=== PATIENT | male | born 1995 | race Caucasian/White ===

== ENCOUNTER 2019-08-14 00:22 | Emergency (ER) | payer SELFPAY ==
[2019-08-14 00:22] VITALS: BP 147/88; PULSE 61; RESP 18; TEMP 36.8; O2SAT 100; BMI 35.2
--- NOTE | 2019-08-14 00:53 | ED.VIS.DENTA ---
History of Present Illness Chief Complaint: Dental Informant: Patient Onset: Weeks - 3 Context: Gradual Onset Timing: Continuous Quality: ache Location: right lower molar Current Severity: Severe Maximum Severity: Severe Worsened by: eating Relieved by: - - ibuprofen and tylenol not helping Associated Symptoms: - - Right facial pain without swelling. No fevers. Past Medical History - Allergies and Home Meds Allergies/Adverse Reactions: Allergies No Known Allergies Allergy (Verified 08/14/19 00:27) Primary Care Physician: NOT,DEFINED [Primary Care Provider] - Past Medical History: None Lives: Spouse/ Significant Other Smoking Status: Current every day smoker Review of Systems General: Denies: Chills, Fever ENT: Reports: - - Dental pain. Right facial pain.. Denies: Rhinorrhea, Sore throat Respiratory: Denies: Dyspnea, Cough Gastrointestinal: Denies: Nausea, Vomiting Physical Exam Vital Signs/Narrative: Vital Signs Temp Pulse Resp BP Pulse Ox 08/14/19 00:22 98.3 F 61 18 147/88 H 100 Inital Vital Signs reviewed: Yes General: Well nourished, Well developed Head: Normocephalic, Atraumatic ENT: Moist mucous membranes, No rhinorrhea. Negative for: Sinus tenderness Mouth/Throat: Normal oral mucosa, No focal abscess, Normal posterior oropharynx, No sublingual edema, Focal dental decay - With carry on tooth #31 which is tender. Negative for: Dental trauma, Trismus Neck: Supple, No lymphadenopathy, Nontender Respiratory: No distress, CTA bilaterally, Chest nontender Skin: Normal color, No rash, No Trauma Neurological: Alert, Oriented x3, Cranial nerves II-XII grossly intact, Normal Strength, Normal Sensation, Normal Gait Psychological: Normal affect, Normal Mood Diagnostic/Tx/Re-eval - Medical Decision Making Dental Procedures: Cavet temporary sealant placed Not able to perform oarrs report. We will give him a prescription for tramadol as well as amoxicillin, and dental resource list given. ED Disposition - Plan for ED Patient: Disposition: Home or Assisted Living Diagnosis: Dental caries, Odontalgia Instructions: Dental Cavity, Dental Pain Prescriptions: Amoxicillin [Amoxil] 750 mg PO Q8H #90 tab.chew Prescription Printed traMADol [Ultram] 50 mg PO Q4H PRN PRN 3 Days #14 tab PRN Reason: Pain Prescription Printed Referrals: Dentist,Your [STAFF PHYSICIAN] - As soon as possible (see resource list if you do not already have one)
[2019-08-14] MEDS: traMADol 50 MG Tablet PO (01:13)
[2019-08-14] MEDS: AMOXICILLIN 500 MG CAPSULE PO (01:13)
== END 2019-08-14 01:16 | disposition home or self-care (01) ==
LOC: ED 01:13
PROVIDERS: Emergency Provider Emergency Medicine; Family Provider Family Medicine; PCP Family Medicine
DX: K02.9 Dental caries, unspecified (principal); F17.200 Nicotine dependence, unspecified, uncomplicated
CPT/HCPCS: 99283

== ENCOUNTER 2023-11-25 20:43 | Emergency (ER) | payer SELFPAY ==
[2023-11-25 20:44] VITALS: BP 117/93; PULSE 66; RESP 18; TEMP 36.5; O2SAT 100; BMI 33.7
--- OUTSIDE RECORDS SUMMARY | 2023-11-25 21:18 | XMS RPT_ITS | CCD ---
Author Name Unknown Address [address] [place] [address] Organization [facility] Care Team Providers Care Outdoor Adventure Guides Name Role Phone Surendra Fitzgerald MD Primary Care Provider SURENDRA FITZGERALD Primary Care Unavailable SHREYAS SANCHEZ Referring Unavailable SURENDRA FITZGERALD Referring Unavailable DAMARI SCANLON Attending Unavailable SURENDRA FITZGERALD Primary Care Unavailable SURENDRA FITZGERALD Primary Care Unavailable SHREYAS SANCHEZ Attending Unavailable SURENDRA FITZGERALD Primary Care Unavailable SURENDRA FITZGERALD Attending Unavailable SURENDRA FITZGERALD Referring Unavailable DAMARI SCANLON Attending Unavailable SURENDRA FITZGERALD Primary Care Unavailable SURENDRA FITZGERALD Referring Unavailable SURENDRA FITZGERALD Primary Care Unavailable DAMARI SCANLON Attending Unavailable Medications Completed/Discontinued Medications Medication Drug Class(es) Dates Sig (Normalized) Sig (Original) Acetaminophen (5 sources) acetaminophen (T YLENOL 8 HOUR ORAL) Take by mouth. 0 Active Problems Active Problems Problem Classification Problem Date Documented Da te Episodic/Chronic Other acquired deformities (1 source) Deformity of tibia; Translations: [Unspecified acquired deformity of left lower leg] Episodic Other acquired deformities (1 source) Leg length inequality; Translations: [Unequal limb length (acquired), unspecified site] Episodic Other nervous system disorders (1 source) Abnormal sensation; Translations: [Other disturbances of skin sensation] Episodic Other skin disorders (1 source) Trichilemmal cyst; Translations: [Pilar cyst] Episodic Past or Other Problems Problem Classification Problem Date Documented Da te Episodic/Chronic Other acquired deformities (1 source) Unspecified acquired deformity of left lower leg; Translations: [Tibial deformity, acquired, left] Onset: 01-14-2022 Episodic Other acquired deformities (1 source) Unequal limb length (acquired), unspecified site; Translations: [Leg length discrepancy] Onset: 01-14-2022 Episodic Other and unspecified benign neoplasm (1 source) Melanocytic nevi, unspecified; Translations: [Skin mole] Onset: 12-09-2021 Episodic Other skin disorders (1 source) Sebaceous cyst; Translations: [Sebaceous cyst] Onset: 12-09-2021 Episodic Skin and subcutaneous tissue infections (10 sources) Abscess; Translations: [Cellulitis, unspecified] Onset: 12-18-2015 12-18-2015 Episodic Results Test Name Value Interpretation Reference Range Facil ity Encounters Encounter Date Encounter Type Care Provider Facility Start: 01-14-2022 End: 01-14-2022 ambulatory SURENDRA [place] [facility] Facility:[facility] Start: 01-14-2022 End: 01-14-2022 Subsequent hospital visit by physician Timothy General Xray A21 Radiology Procedures Date Procedure Procedure Detail Performing Clinician Start: 01-14-2022 Bone length studies Samir jb Sanchez MD Work Phone: Plan of Treatment Date Care Activity Detail Author Start: 06-12-2022 Influenza vaccination C [facility] Start: 03-26-2022 Adult depression scr eening assessment DEPRESSION SCREENING [facility] Payers Date Payer Category Payer Medicaid UHC MEDICAID [employer]ITY [employer] MEDICAID [id number] 2019-Present [phone] [address] [place] [address] Medicaid [id number] 2019 Medicaid UHC MEDICAID UHC COMMUNITY PLAN MEDICAID OF [place] [id number] 2019-Present [phone] [address] [place] [address] Medicaid [id number] 2019 Medicaid [id number] Social History Date Type Detail Facility Start: 12-18-2015 End: 08-09-2020 Tobacco smoking status NHIS Ex-smoker [facility] Start: 12-18-2015 End: 08-09-2020 Tobacco use and exposure Smokeless tobacco non-user [facility] Start: 01-03-2022 Alcohol intake Current drinke r of alcohol (finding) [facility] Start: 1995 Sex Assigned At Not on file C [facility] Start: 12-24-2021 End: 01-14-2022 Exposure to SARS-CoV-2 (event) Not sure [facility] History of tobacco use Current smoker [facility] Clinical Notes 12-06-2021 to 01-14-2022 RT Glenroy(R) - 01/14/2022 2:20 PM EDTTelephone Encounter - Candy Mayorga LPN - 01/13/2022 1:32 PM EDTTelephone Encounter - Lito León APRN.WIND PROJECTS SUPERVISOR - 01/13/2022 1:22 PM EDT Note Date & Type Note Facility 01-14-2022 Note HNO ID: [id number] Author: Shreyas Sanchez MD Service: ? 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 He has been contemplating doing further surgery for this. He is getting back pain periodically and some ankle pain. Here today for further discussion. On examination today he has a pretty significant left side shorter than the right leg length inequality. Ankle deformity identified with significant internal rotation of the tibia. Multiple previous scars identified on the tibia from previous external fixators. He is ambulating quite good and is in no acute distress today. Radiographs reviewed which show pretty significant varus of the distal tibia and the joint is tilted at about 48 degrees. Changes about the knee also identified. Leg length inequality of approximately 46 mm. Plan: We have a long discussion today regarding overall findings. We have again discussed the possibility of doing a distal tibia and fibular osteotomy with spatial frame correcting tibial rotation distal tibial varus position and leg length inequality. We have discussed amount of time he would likely be in a frame. We have discussed concerns and complications associated with the frame. He will consider this perhaps for the fall. Shreyas Sanchez MD [facility] 01-14-2022 Note HNO ID: [id number] Author: RT Glenroy(R) Service: ? Author Type: Technologist Type: Progress Notes Filed: 01/14/2022 2:57 PM Note Text: Radiology Service Progress Note PATIENT NAME: Trey Alejo DATE OF SERVICE: January 14, 2022 TIME: 2:56 PM PATIENT IDENTITY VERIFICATION COMPLETED USING TWO (2) IDENTIFIERS: Name and Date of confirmed by patient verbally. FALL SCREENING: Has the patient had 2 falls in the last year or 1 fall with injury or currently using an Ambulatory Assistive Device (Walker, Cane, Wheelchair, Crutches, etc.)? No PATIENT GENDER DATA: Male PATIENT RELEVANT IMPLANT DATA REVIEWED: Not Applicable RADIOLOGY DEPARTMENT: General X-ray: Exam(s) Completed: Lower Extremity X-Ray(s): FLEA (Full Length Lower Extremity) PERIPHERAL IV DATA: Not applicable SIGNED BY: RT Glenroy(R) January 14, 2022 2:56 PM [facility] 01-14-2022 History of Presen t illness Narrative Radiology Service Progress Note PATIENT NAME: Trey Alejo DATE OF SERVICE: January 14, 2022 TIME: 2:56 PM PATIENT IDENTITY VERIFICATION COMPLETED USING TWO (2) IDENTIFIERS: Name and Date of confirmed by patient verbally. FALL SCREENING: Has the patient had 2 falls in the last year or 1 fall with injury or currently using an Ambulatory Assistive Device (Walker, Cane, Wheelchair, Crutches, etc.)? No PATIENT GENDER DATA: Male PATIENT RELEVANT IMPLANT DATA REVIEWED: Not Applicable RADIOLOGY DEPARTMENT: General X-ray: Exam(s) Completed: Lower Extremity X-Ray(s): FLEA (Full Length Lower Extremity) PERIPHERAL IV DATA: Not applicable SIGNED BY: RT Glenroy(R) January 14, 2022 2:56 PM documented in this encounter [facility] 01-13-2022 Miscellaneous Notes Formattin g of this note might be different from the original. Patient notified of results, verbalizes understanding of instructions. Candy Mayorga LPN If the patient needed an antibiotic now, the dentist would have given him one. No need for anything further. Lito León APRN.SINDHU Pt called in and reports he just had his teeth cleaned and the dentist reported that they are infected. He states he broke 4 of his teeth, and he is going to be getting them pulled on 01/30/22. He reports that the dentist gave him Amoxicillin and Decadron, but told him not to take them until right before the surgery. Pt says he is not really have much pain from teeth, his jaw is a little sore underneath where the teeth are. He reports he has been spitting out white yellow salvia from his mouth. Pt states it has decreased his appetite. He is still eating and drinking, but he tends not to chew food on the side of his mouth with the broke teeth. Pt is wanting to know if provider feels that he needs any antibiotic before his surgery, and asking if he would send it to [facility]. Pt also asking if he would make antibiotic liquid. Please call and advise. documented in this encounter [facility] 01-06-2022 Miscellaneous Notes Told patient results of pathology - compound melanocytic nevus Continue observation of area, for any development of future dark pigmentation. Patient acknowledges above. documented in this encounter [facility] 01-06-2022 Note HNO ID: [id number] Author: Damari Scanlon MD Service: ? Author Type: Physician Type: Procedures Filed: 01/06/2022 7:54 AM Note Text: Description of procedure: After informed consent was obtained, patient was brought to the procedure room. Appropriate time out protocol was followed. Patient was placed in the supine position. The site of the lesion was then cleansed with a sterile surgical skin preparation. Appropriate sterile surgical drapes were placed. The skin and subcutaneous tissues at the site were then infiltrated with local anesthetic. A skin incision was made at the site over the lesion with a 15 blade scalpel. The incision was carried down to the subcutaneous tissues. Dissection was done to separate the skin lesion from the surrounding subcutaneous tissues. The lesion was excised sharply down to the subcutaneous tissues. The lesion was 1.4 cm in size. The tissue was then removed. Patient did not want it to be forwarded to pathology for analysis. Hemostasis was controlled by pressure. The skin edges were then reapproximated with interrupted 3-0 chromic suture in a simple fashion. Patient tolerated procedure well. Complications - none EBL - minimal [facility] 01-06-2022 Note HNO ID: [id number] Author: Damari Sacnlon MD Service: ? Author Type: Physician Type: Progress Notes Filed: 01/06/2022 7:54 AM Note Text: Trey presents for excision of scalp cyst. The location of this lesion was of the forehead just within the hairbearing area. Patient tolerated procedure well. Also, the pathology from excision of left shoulder lesion is still pending - this was done on 12/18/2021. The office staff will call the pathology department for status of the above. Patient to follow up in a week for excision of another scalp cyst lesion. [facility] 01-06-2022 Procedure note Procedure(s): REM LESION NEC,HND,SCAL,FEET,GENITALIA 1.1-2.0CM Pre-Procedure Diagnose(s): Scalp cyst; Dysesthesia Post-Procedure Diagnose(s): Scalp cyst; Dysesthesia Description of procedure: After informed consent was obtained, patient was brought to the procedure room. Appropriate time out protocol was followed. Patient was placed in the supine position. The site of the lesion was then cleansed with a sterile surgical skin preparation. Appropriate sterile surgical drapes were placed. The skin and subcutaneous tissues at the site were then infiltrated with local anesthetic. A skin incision was made at the site over the lesion with a 15 blade scalpel. The incision was carried down to the subcutaneous tissues. Dissection was done to separate the skin lesion from the surrounding subcutaneous tissues. The lesion was excised sharply down to the subcutaneous tissues. The lesion was 1.4 cm in size. The tissue was then removed. Patient did not want it to be forwarded to pathology for analysis. Hemostasis was controlled by pressure. The skin edges were then reapproximated with interrupted 3-0 chromic suture in a simple fashion. Patient tolerated procedure well. Complications - none EBL - minimal documented in this encounter [facility] 01-06-2022 History of Presen t illness Narrative Trey presents for excision of scalp cyst. The location of this lesion was of the forehead just within the hairbearing area. Patient tolerated procedure well. Also, the pathology from excision of left shoulder lesion is still pending - this was done on 12/18/2021. The office staff will call the pathology department for status of the above. Patient to follow up in a week for excision of another scalp cyst lesion. UNIVERSAL PROTOCOL / SAFETY CHECKLIST Procedure to be Performed: Excision of scalp skin lesions Sign In: A Moment of CARE was completed. Personnel directly involved with the procedure wore the appropriate PPE (Personal Protective Equipment). Patient/Surrogate Stated/Verified: PATIENT VERIFIED(optional for EMERGENT procedures): Patient name, Date of , Relevant allergies and The intended procedure Time Out Communication: Intended patient and procedure match the source documents. Consent documented and matches the intended procedure. No relevant labs, photos, and/or imaging studies were applicable for review. Medications required for procedure verified. No fire risk assessment and interventions applicable. No implant(s) inserted. Sign Out: SIGN OUT (optional for EMERGENT procedures): No specimen collected. No instruments, equipment or retained foreign bodies applicable. Post-procedure follow-up management communicated and Plan of Care Visit completed when applicable. Georgie Kaye LPN documented in this encounter [facility] 01-03-2022 Note HNO ID: [id number] Author: Georgie Kaye LPN Service: ? Author Type: LICENSED NURSE Type: Progress Notes Filed: 01/06/2022 7:54 AM Note Text: UNIVERSAL PROTOCOL / SAFETY CHECKLIST Procedure to be Performed: Excision of scalp skin lesions Sign In: A Moment of CARE was completed. Personnel directly involved with the procedure wore the appropriate PPE (Personal Protective Equipment). Patient/Surrogate Stated/Verified: PATIENT VERIFIED(optional for EMERGENT procedures): Patient name, Date of , Relevant allergies and The intended procedure Time Out Communication: Intended patient and procedure match the source documents. Consent documented and matches the intended procedure. No relevant labs, photos, and/or imaging studies were applicable for review. Medications required for procedure verified. No fire risk assessment and interventions applicable. No implant(s) inserted. Sign Out: SIGN OUT (optional for EMERGENT procedures): No specimen collected. No instruments, equipment or retained foreign bodies applicable. Post-procedure follow-up management communicated and Plan of Care Visit completed when applicable. Geogrie Kaye LPN [facility] 01-03-2022 Miscellaneous Notes Spoke to Dre at [facility], states to call back on Thursday in the morning, d/t [facility] client service dept having no one available. Left message for patient to call office. Will be following up with lab on Thursday01/06/22 documented in this encounter [facility] 01-03-2022 Instructions Georgie Kaye LPN - 01/03/2022 2:31 PM EDT The following instructions are important for you related to your office visit today with the [facility]. Instructions After I & D If the dressing becomes soaked or had significant drainage, the dressing should be changed. If there is minor bleeding from this skin edge, you should hold pressure on the incision. If there is continued bleeding, you should contact our office immediately. Wash the wound with gentle soap and water. You may shower. The wound should not be immersed in a pool, bathtub, or even hot tub. If the wound shows signs of redness, inflammation, or purulent drainage, you should contact our office immediately. If you note any additional difficulties, questions, or concerns, you should contact our office immediately @ [phone] and ask to be transferred to the General Surgery department. documented in this encounter [facility] 12-18-2021 Note HNO ID: [id number] Author: Damari Scanlon MD Service: ? Author Type: Physician Type: Procedures Filed: 12/18/2021 4:26 PM Note Text: Description of procedure: After informed consent was obtained, patient was brought to the procedure room. Appropriate time out protocol was followed. Patient was placed in the supine position. The site of the lesion was then cleansed with a sterile surgical skin preparation. Appropriate sterile surgical drapes were placed. The skin and subcutaneous tissues at the site were then infiltrated with local anesthetic. A skin incision was made at the site in an elliptical fashion to entirely incorporate the lesion with a 15 blade scalpel. The incision was carried down to the subcutaneous tissues. The lesion was excised sharply down to the subcutaneous tissues. It was then sharply excised. The lesion was 1.5 cm in size. The tissue was then removed and placed in formalin to be forwarded to pathology for analysis. Hemostasis was controlled by pressure. The skin edges were then reapproximated with interrupted 2-0 nylon suture in a simple fashion. Sterile dressing was applied. Patient tolerated procedure well. Complications: none EBL - minimal [facility] 12-18-2021 Note HNO ID: [id number] Author: Damari Scanlon MD Service: ? 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 He will follow up in two weeks when he returns for excision of pilar cysts of scalp. Wound dressing instructions given. [facility] 12-18-2021 Note HNO ID: [id number] Author: Georgie Kaye LPN Service: ? Author Type: LICENSED NURSE Type: Progress Notes Filed: 12/18/2021 4:26 PM Note Text: UNIVERSAL PROTOCOL / SAFETY CHECKLIST Procedure to be Performed: Excision of left shoulder skin lesion. Sign In: A Moment of CARE was completed. Personnel directly involved with the procedure wore the appropriate PPE (Personal Protective Equipment). Patient/Surrogate Stated/Verified: PATIENT VERIFIED(optional for EMERGENT procedures): Patient name, Date of , Relevant allergies and The intended procedure Time Out Communication: Intended patient and procedure match the source documents. Consent documented and matches the intended procedure. Sign Out: Georgie KayeNATHALIE [facility] 12-09-2021 Note HNO ID: [id number] Author: Damari Scanlon MD Service: ? Author Type: Physician Type: Progress Notes Filed: 12/10/2021 7:09 AM Note Text: Trey Henriquez Melo 1995 REFERRING PHYSICIAN: Surendra Fitzgerald MD CHIEF COMPLAINT: Consult (sebaceous cyst/mole) HPI: The patient is a 26 year old male presents with complaint of pilar cysts of the scalp. Because they protrude, they are easily abraded with hair grooming and he requests removal. He also notes a darkly pigmented nevus of his left shoulder area that he is concerned about. Has noted these lesions for years . He has had pilar cysts of the scalp removed previously. PAST MEDICAL HISTORY Diagnosis Date - Meningitis spinal 1997 PAST SURGICAL HISTORY Procedure Laterality Date - PAST SURGICAL HISTORY OF Left 2004, 2006 limb lengthening Current Outpatient Medications Medication Sig - DM/p-ephed/acetaminoph/doxylam (NYQUIL D ORAL) Take by mouth. - acetaminophen (TYLENOL 8 HOUR ORAL) Take by mouth. (Patient not taking: Reported on 12/09/2021 ) ALLERGIES: Patient has no known allergies. PERSONAL HISTORY: Social History Tobacco Use - Smoking status: Former Smoker - Smokeless tobacco: Never Used Vaping Use - Vaping Use: Never used Substance Use Topics - Alcohol use: Yes - Drug use: Yes Types: Marijuana FAMILY HISTORY Problem Relation Age of Onset - Hypertension Mother - Cancer Father - Cancer Maternal Grandmother unsure of specifics The review of systems data was entered by the nurse and reviewed by wy Nursing Notes: Radha Enrique RN 12/09/2021 1:31 PM Signed REVIEW OF SYSTEMS: General: The patient denies fatigue, denies weight loss, denies weight gain, denies feeling hot, and denies feelings of cold. Eyes: The patient denies glaucoma, denies eye injury/surgery, does not wear glasses or contacts. Ear/Nose/Throat: The patient denies allergies, denies hayfever, denies ear infections, and denies bloody noses. Cardiovascular: The patient denies chest pain, denies heart disease, denies high blood pressure,denies cardiac stent, denies prior heart attack, denies irregular heart beat, denies high cholesterol, denies poor circulation, denies heart failure, other cardiac issues, denies claudication, denies cold feet, denies peripheral arterial stent. Respiratory: The patient denies tuberculosis, denies pneumonia, denies frequent cough, denies pulmonary embolism, NOTES shortness of breath, and denies coughing up blood. Gastrointestinal: The patient denies difficulty swallowing, denies acid reflux, denies ulcers, denies vomiting, denies jaundice/hepatitis, denies gallbladder problems, denies black or tarry stools, denies hemorrhoids, denies bleeding from rectum, denies diverticulitis, denies constipation, denies diarrhea, denies loss of stool control, and denies hernias. Kidney/Bladder: The patient denies kidney stones, denies urine infections, and denies bloody urine. Skin: The patient denies a history of skin cancer, denies bleeding/changing moles, and denies a history of skin rash. Neurologic: The patient denies a history of epilepsy/convulsions, denies headaches, denies head/spinal injuries, and denies stroke/TIA. Psychiatric: The patient denies psychiatric medications, denies depression, and denies voices, denies substance abuse. Endocrine: The patient denies thyroid disorders, denies diabetes, and denies hormonal problems. Hematologic: The patient denies a history of bruising, denies bleeding, and denies anemia, denies blood clots. Infections: The patient denies a history of measles and mumps, denies rheumatic fever, and denies sexually transmitted diseases. Musculoskeletal: The patient NOTES back pain/injury, denies back problems, denies sciatica, denies knee/foot trouble, denies arthritis, or denies gout. When was patient's last Mammogram screening? N/A Last Colonoscopy: none Radha Enrique RN PHYSICAL EXAMINATION: General: The patient is 26 year old male, well nourished, well hydrated in no acute distress. The patient is oriented to time, place, and person. VITALS: Blood pressure 100/64, pulse 73, temperature 37.4 ?C (99.3 ?F), height 160 cm (5' 3 ), weight 79.6 kg (175 lb 6.4 oz), SpO2 95 %. Body mass index is 31.07 kg/m?. Head: Normal cephalic, atraumatic, pilar cysts of scalp noted x 4 in various locations, all about 1 cm Eyes: pupils are equally round, sclera are clear/anicteric Neck is supple with no tracheal deviation Respiratory: Normal respiratory excursion and pattern. Abdominal exam: benign Extremities: no clubbing, cyanosis or edema. Skin: pilar cysts as above, darkly pigmented nevus of left shoulder about 1.5 cm Neuro: non focal Psych: normal mood Assessment IMPRESSION: pigmented nevus of left shoulder area of uncertain behavior, pilar cysts causing irritation PLAN: I have discussed the above with the patient. I have offered exc (more content not included)... [facility] 12-06-2021 Note HNO ID: [id number] Author: Surendra Fitzgerald MD Service: ? Author Type: Physician Type: Progress Notes Filed: 12/06/2021 3:13 PM Note Text: Chief Complaint No chief complaint on file. HPI Trey Alejo is a 26 year old male who presents here today for a Wellness Exam. Pt here today for a Wellness exam. Pt last seen in office on 08/09/2020. 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 Has Arabic bulldog. Denies tobacco use, but does smoke marijuana occ- noted in the past it helps with his pain. GI/Urinary - Denies any stomach, bowel or urinary issues. Cardiac - Denies any chest pain, sob or dizziness. Pain - Chronic back and left leg and ankle pain due to leg length discrepancy. Pt has had previous ankle surgeries with screws placed. At previous OV pt requested that he would like to f/u with a Specialist due to his chronic pain. Pt did f/u with Ortho Dr Shreyas Sanchez on 08/21/2020. Surgical correction was discussed; trey did not follow up after that but would like to now. Two karmen cysts on scalp. Large moel on left shoulder that has been rpesent a long time. Past medical history, appointments, medications, allergies reviewed. Previous Medical History PAST MEDICAL HISTORY Diagnosis Date - Meningitis spinal Previous Surgical History PAST SURGICAL HISTORY Procedure Laterality Date - PAST SURGICAL HISTORY OF Left 2004, 2006 limb lengthening Family History FAMILY HISTORY Problem Relation Age of Onset - Cancer Maternal Grandmother unsure of specifics Patient Allergies ALLERGIES No Known Allergies Current Medications Current Outpatient Medications on File Prior to Visit Medication Sig - trimethoprim-polymyxin (POLYTRIM) 10,000 unit- 1 mg/mL ophthalmic solution Use 2 Drops in both eyes four times daily. - cephALEXin (KEFLEX) 250 mg/5 mL suspension Take 10 mL by mouth four times daily. (Patient not taking: Reported on 08/21/2020 ) - sulfamethoxazole-trimethoprim (BACTRIM,SEPTRA) 200-40 mg/5 mL suspension Take 10 mL by mouth twice daily. (Patient not taking: Reported on 08/21/2020 ) - zolpidem (AMBIEN) 10 mg tab Take 1 tablet by mouth at bedtime as needed. (Patient not taking: Reported on 08/21/2020) No current facility-administered medications on file prior to visit. Social History Social History Tobacco Use - Smoking status: Former Smoker - Smokeless tobacco: Never Used Vaping Use - Vaping Use: Never used Substance Use Topics - Alcohol use: No - Drug use: Yes Types: Marijuana EXAM: There were no vitals taken for this visit. General Appearance: Well appearing, alert, in no acute distress, well-hydrated, well nourished.. Skin: two small karmen cyst on right side scalp, not inflamed or draining. 1+ cm rough brown mole on left shooulder. Lungs: Lungs clear to auscultation. No wheezing, rhonchi, rales.. Heart: RRR without murmur, gallop, or rubs. No ectopy. Abdomen: Normal abdominal exam, Abdomen soft, non-tender. Bowel sounds normal. No masses, organomegaly. Extremities: left lower leg internal torsion. Health Maintenance List COVID-19 VACCINE(1) Never done MENINGOCOCCAL B: Consider based on risk(1 of 2 - Risk Bexsero 2-dose series) Never done HPV VACCINE(1 - Male 2-dose series) Never done DEPRESSION SCREENING Never done HEPATITIS C SCREENING Never done HIV SCREENING Never done DTAP,TDAP,TD(1 - Tdap) Never done INFLUENZA(1) due on 06/12/2021 MENINGOCOCCAL CONJUGATE Aged Out Data reviewed None ASSESSMENT/PLAN: 1. Wellness examination - ICD9: V70.0, ICD10: Z00.00 (primary diagnosis) - Counseled on healthy diet and regular exercise 2. Acquired leg length discrepancy - ICD9: 736.81, ICD10: M21.70 Given the contact number listed in the note of his visit with Dr Sanchez; pt will call and schedule follow up 3. Sebaceous cyst - ICD9: 706.2, ICD10: L72.3 - CONSULT TO GENERAL SURGERY 4. Skin mole - ICD9: 216.9, ICD10: D22.9 - CONSULT TO GENERAL SURGERY Follow up prn Surendra Fitzgerald MD [facility] Diagnosis Tibial deformity, acquired, left Leg length discrepancy Unequal leg length (acquired) documented [facility] this [facility]ative[facility] Diagnostic Procedure Only (Routine) - Closed Specialty Diagnoses / Procedures Referred By Contac t Referred To Contact XR IMAGING Diagnoses Tibial deformity, acquired, left Leg length discrepancy Procedures XR LEG FRONTAL HIP TO ANKLE MECHANICAL AXIS BONE LENGTH STUDIES Shreyas Sanchez MD [address] [place] [address] Xr Imaging Referral ID Status Reason Start Date Expiration Date V isits Requested Visits Authorized [id number] Closed Auto-Generate d Referral 12/12/2021 01/10/2023 1 1 [facility] Summary Purpose Family History No Family History Records Found Advance Directives No Advanced Directives Records Found Additional Source Comments Source Comments (unrecognize d section and content) In the event this informatio n is protected by the Federal Confidentiality of Alcohol and Drug Abuse Patient Records regulations: The Federal rules restrict any use of the information to criminally investigate or prosecute any alcohol or drug abuse patient.[facility] the event this information is protected by the Federal Confidentiality of Alcohol and Drug Abuse Patient Records regulations: The Federal rules restrict any use of the information to criminally investigate or prosecute any alcohol or drug abuse patient.[facility] the event this information is protected by the Federal Confidentiality of Alcohol and Drug Abuse Patient Records regulations: The Federal rules restrict any use of the information to criminally investigate or prosecute any alcohol or drug abuse patient.[facility] the event this information is protected by the Federal Confidentiality of Alcohol and Drug Abuse Patient Records regulations: The Federal rules restrict any use of the information to criminally investigate or prosecute any alcohol or drug abuse patient.[facility] the event this information is protected by the Federal Confidentiality of Alcohol and Drug Abuse Patient Records regulations: The Federal rules restrict any use of the information to criminally investigate or prosecute any alcohol or drug abuse patient.[facility] Reason for Visit (unrecogniz ed section and content) Reason Comments Procedure Excision of scalp sk in lesions Wound Check suture removal left shoulder Reason Comments Results Reason Comments Radio Gen A21 Specialty Diagnoses / Procedures Referred By Contac t Referred To Contact XR IMAGING Diagnoses Tibial deformity, acquired, left Leg length discrepancy Procedures XR LEG FRONTAL HIP TO ANKLE MECHANICAL AXIS BONE LENGTH STUDIES Shreyas Sanchez MD [address] [place] [address] Xr Imaging Referral ID Status Reason Start Date Expiration Date V isits Requested Visits Authorized [id number] Closed Auto-Generate d Referral 12/12/2021 01/10/2023 1 1 Reason Comments Patient Update Broken teeth Care Teams (unrecognized sec tion and content) [employer] Relationship Specialty Start Date End Date Surendra Fitzgerald MD [address] [place], [place] [phone] PCP - General Family Practice 02/13/16 [employer] Relationship Specialty Start Date End Date Surendra Fitzgerald MD [address], [place] [phone] PCP - General Family Practice 02/13/16 [employer] Relationship Specialty Start Date End Date Surendra Fitzgerald MD [address], [place] [phone] PCP - General Family Medicine 02/13/16 (unrecognized sect ion and content) No Status Records Found INFORMATION SOURCE (unrecogn ized section and content) FOR RECORDS PERTAINING TO PATIENTS WHO ARE OR HAVE BEEN ENROLLED IN A CHEMICAL DEPENDENCY/SUBSTANCEABUSE PROGRAM, SOME INFORMATION MAY BE OMITTED. This clinical summary was aggregated from multiple sources. Caution should be exercised in using it in the provision of clinical care. This summary normalizes information from multiple sources, and as a consequence, information in this document may materially change the coding, format and clinical context of patient data. In addition, data may be omitted in some cases. CLINICAL DECISIONS SHOULD BE BASED ON THE PRIMARY CLINICAL RECORDS. [facility] provides no warranty or guarantee of the accuracy or completeness of information in this document.
[2023-11-25] MEDS: HYDROCODONE/APAP 7.5-325/15ML 15 ML UDC 10 ML PO (22:29)
[2023-11-25] MEDS: Diphth,Pertuss(Acell),Tet Vac 0.5 ML Vial IM (22:29)
--- NOTE | 2023-11-25 22:43 | EDS_ITS ---
HPI History of Present Illness Chief Complaint: Bite Narrative Narrative: 28-year-old male presents today and a dog bite to the fourth digit of his right hand. He states he was bit by his Cam[place] bulldog. He states the dog was put into the cage and that is why he bit him. The dog shots are up-to-date. No concern for rabies. Bleeding is well-controlled. Patient states it is very painful. Does not think he went to bone. Patient has full range of motion of the right finger. No numbness or tingling. Last tetanus unknown. [id number]. ROS ROS ED Constitutional Constitutional ED: Denies chills, fever(s) or sweats Eyes Eyes: Denies blurry vision or change in vision ENT ENT ED: Denies ear pain or sore throat Cardiovascular Cardiovascular: Denies chest pain, palpitations or racing heartbeat Respiratory/Chest Respiratory/Chest: Denies cough, dyspnea or sputum Gastrointestinal Gastrointestinal: Denies abdominal pain, constipation, diarrhea, nausea or vomiting Genitourinary Genitourinary ED: Denies dysuria, hematuria or urinary frequency Musculoskeletal Musculoskeletal: Denies arthralgias, myalgias or neck pain Integumentary Reports other Details: Dog bite right fourth digit ; Denies abscess, Abrasions or rash Neurologic Neurologic: Denies headache(s), paresthesias or weakness Psychiatric Psychiatric: Denies anxiety, depression, suicidal ideation or suicidal thoughts Endocrine Endocrinology: Denies polydipsia or polyuria PFSH PFSH Medical History no medical history Home Medications amoxicillin 400 mg-potassium clavulanate 57 mg/5 mL oral suspension 10.9375 ml PO BID 10 days #218.75 mL 11/25/23 [Rx Last Taken Unknown] hydrocodone 7.5 mg-acetaminophen 325 mg/15 mL oral solution 10 ml PO Q6H PRN pain 3 days #120 mL 11/25/23 [Rx Last Taken Unknown] Allergy/AdvReac Type Severity Reaction Status Date / Time No Known Allergies Allergy Verified 11/25/23 20:44 Social History Smoking Status: Current every day smoker tobacco type: cigarettes EXAM Physical Exam Const Vital Signs: 11/25/23 20:44 Temperature 97.7 F L Temperature Source Temporal Pulse Rate 66 Respiratory Rate 18 Blood Pressure 117/93 H Blood Pressure Mean 101 Pulse Ox 100 Oxygen Delivery Method Room Air Positive well nourished HEENT normocephalic and atraumatic Eyes PERRL and EOMs intact bilaterally Neck full ROM Resp normal respiratory effort and clear to auscultation bilaterally Cardio regular rate and regular rhythm Neuro oriented x3 and CN's II-XII intact bilaterally Sensorium / Orientation: alert Motor Exam: strength 5/5 throughout Psych mental status grossly normal Skin Skin Narrative: Patient with 2 puncture type wounds to the right fourth digit on the volar surface. There is fat layer exposed. No bony tenderness. Neurovascular intact brisk cap refill to all 5 fingers. MDM MDM MDM Narrative Medical decision making narrative: Patient presenting with dog bite to the right fourth digit. There is some fat tissue exposed. Patient's hand was soaked in soapy water. This was cleaned and dressed. I did explain to the patient this will have to heal by secondary intention as it is a dog bite. He does have some fat layer exposed with the patient's wound will be cleaned and placed in a dressing. He is counseled on wound care and return precautions. He is counseled he is counseled to take his medications as prescribed. I did give him follow-up with plastics ([facility]). Tetanus was updated today. Impression: 1. dog bite right hand 2. Tetanus immunization Discharge Plan Triage Chief Complaint: Bite ED Provider: Candido Sommers Dx/Rx/DC Orders Instructions: ED Dog Bite Prescriptions: New amoxicillin-pot clavulanate 400-57 mg/5 mL suspension for reconstitution 10.9375 ml PO BID 10 Days Qty: 218.75 0RF hydrocodone-acetaminophen 7.5-325 mg/15 mL solution 10 ml PO Q6H PRN (Reason: pain) 3 Days Qty: 120 0RF Primary Care Provider: Dustin Martinez Referrals: Dustin Martinez MD [Primary Care Provider] - Jamilah Muse MD [Med Staff - Active Staff] - As soon as possible Disposition Disposition: Home, Self Care
[2023-11-25] MEDS: Amox/Clav 400mg/5ml Susp 875 MG PO (23:01)
[2023-11-25 23:02] VITALS: BP 142/72; PULSE 70; RESP 18; TEMP 36.4; O2SAT 98
--- NOTE | 2023-11-25 23:26 | ED.RN ---
pt request medication to be sent to [facility] pharmacy- informed physician and he is unable to switch at this time. pt will come through drive thru tomorrow.
--- NOTE | 2023-11-25 23:27 | ED.RN ---
fat tissue noted during dressing- physician stated okay to dress. pt has followup referral.
== END 2023-11-25 23:28 | disposition home or self-care (01) ==
PROVIDERS: Emergency Provider Student in an Organized Health Care Education/Training Program; PCP Family Medicine; Visit Provider Student in an Organized Health Care Education/Training Program
DX: S61.451A Open bite of right hand, initial encounter (principal); F17.210 Nicotine dependence, cigarettes, uncomplicated; W54.0XXA Bitten by dog, initial encounter; Z23 Encounter for immunization
CPT/HCPCS: 90471; 90715; 99284